=== PATIENT | female | born 1985 | race Caucasian/White ===

== ENCOUNTER 2018-11-06 08:33 | Emergency (ER) | payer MEDICARE ==
[~2018-11-06] VITALS: Ht 152.4 cm; Wt 81.6 kg
--- OUTSIDE RECORDS SUMMARY | 2018-11-06 08:34 | XMS REPORT ---
Author Author [facility] Address Unknown Phone Unavailable Care Team Providers Care Sack Filler Name Role Phone Unavailable Unavailable Payers Payer Name Policy Type Policy Number Effective Date Expiration Date Problems This patient has no known problems. Allergies, Adverse Reactions, Alerts This patient has no known allergies or adverse reactions. Medications This patient has no known medications.
[2018-11-06] MEDS ORDERED: IBUPROFEN 600 MG TAB PO STA (08:55)
--- NOTE | 2018-11-06 09:41 | Diagnostic Imaging Report ---
Exam: Right foot radiographs-2 views Clinical History: Right foot pain. Comparison: None. Findings: No evidence of acute fracture, malalignment, or soft tissue abnormality. Impression: No acute radiographic abnormality. Signed by: Dr. Yohana Saldana MD on 11/06/2018 9:38 AM
--- NOTE | 2018-11-06 10:45 | NUR ---
AMRIT WRAP APPLIED TO RIGHT FOOT, NORMAL SENSATION, NORMAL COLOR, PT VOICES NO COMPLAINTS, ICE PACK APPLIED TO RIGHT FOOT.
[2018-11-06 10:49] VITALS: BP 141/77
== END 2018-11-06 10:55 | disposition home or self-care (01) ==
LOC: ER 08:33 → FSED 10:55
DX: S93.611A Sprain of tarsal ligament of right foot, initial encounter (principal); X50.1XXA Overexertion from prolonged static or awkward postures, initial encounter; Y92.008 Other place in unspecified non-institutional (private) residence as the place of occurrence of the external cause
CPT/HCPCS: 99283